=== PATIENT | female | born 1990 | race Caucasian/White ===

== ENCOUNTER 2017-02-03 07:42 | Inpatient (IN) | payer OTHER ==
[~2017-02-03] VITALS: Ht 160 cm; Wt 108.9 kg
[~2017-02-03 07:42] MED LIST: CEPH-512 PO; CeFAZolin Inj 2 GM in IV Premix 1 EACH IV ONE; HYDR-4003 PO; SLEEP; vitamin b6
--- NOTE | 2017-02-03 08:11 | PCM.HPANE ---
Patient Data Surgeon Admitting Provider:Otto Mcdaniel MD Attending Provider:Otto Mcdaniel MD Primary Care Physician:Сергей Kwan MD Other Provider:Twan Pedroza Anesthesia Reason for Visit Repeat REPEAT Ht/WT & BMI Body Mass Index Allergies Coded Allergies: No Known Allergies (Unverified , 06/19/16) Past Anesthesia History Anesthesia History: Denies:: Abnormal Airway, Anesthesia Reactions, Difficult Intubation, Fam Anesthesia Reaction, Malignant Hyperthermia Diabetes History Hx Diabetes?: No MRSA MRSA: No Medications Active Scripts Hydrocodone-Acetaminophen 5-325 mg 1 Each Tablet1 Tablet PO Q4H PRN For Pain # 14 TABLET Prov:Babar Aly MD 06/20/16 Cephalexin (Keflex)500 Mg [id number] Mg PO QID 14 Days Prov:Babar Aly MD 06/20/16 Reported Medications [vitamin b6] No Conflict Check50 Mg HS PRN For Nausea pt taking with sleep aid to help with nausea related to hydrocodone 06/21/16 [sleep tab] No Conflict Check12.5 Mg HS PRN For Nausea 06/21/16 History HEENT History: Denies:: Abnormal Airway Cataracts Difficult Intubation Dysphagia Hearing Problem Sinus Problem TMJ Hx of Heart Problems?: No Cardiovascular History: Denies:: AICD Abdominal Aortic Aneurism Chest Pain Congestive Heart Failure Heart Murmur Hypertension Irregular Heartbeat Pacemaker Hx of Respiratory Problem?: No Respiratory History: Denies:: Asthma COPD Emphysema Oxygen Administration Pneumonia Tuberculosis Use of C-PAP Machine Hx Neurologic Problems?: No Neurological History: Denies:: Alzheimer's Disease CVA Dementia Headaches Multiple Sclerosis Parkinson's Disease Seizures Hx of GI Problems?: Yes Gastrointestinal History: Positive for:: Gastroesphageal Reflux (occasional during ) Heartburn Denies:: Cirrhosis Gastrointestinal Bleeding Hepatitis Hiatal Hernia Rectal Bleeding Hx of Problems?: No Genitourinary History: Denies:: Kidney Stones Urinary Tract Infection Female Hx: Positive for:: Currently (approx 6 weeks ) Denies:: Problems with Breasts? Skin History: Positive for:: History Skin Disorders? 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) Denies:: Back Injury Joint Replacement Systemic Lupus Hx of Psycho/Social Problems?: No Psycho Social History: Denies:: Anxiety Hx Depression Hx Surgeries?: Yes (C section) Hx Any Other Health Problems?: Yes Other History: Denies:: Cancer Thyroid Disease History Blood Transfusions: Denies:: Blood Transfusions Hx Diabetes: No Hx Alcohol Use: NoHx Substance Use: No Smoking Status: Never Smoker Have You Smoked inLast 12 mo: No Stop/Bang NAMRATA Risk Assessment: Low Risk, <3 Yes Risk Assessment Category Category 1A: Patient has history of documented sleep apnea, and HAS NOT received any narcotic, sedative or anesthesia administration during this stay. Category 1B: Patient has history of documented sleep apnea, and HAS received any narcotic , sedative or anesthesia administration during this stay Category 2: Patient has SUSPECTED Obstructive Sleep Apnea, and HAS received any narcotic , sedative or anesthesia administration during this stay. Category 3: Patient has SUSPECTED Obstructive Sleep Apnea and HAS NOT received narcotic, sedative or anesthesia administration during this stay. Category 4: Outpatient in Procedural Areas with known sleep apnea or who screen positive for High Risk via the STOP/BANG questionnaire. Exam Exam General Appearance: Alert HEENT/AIRWAY: MP 1 Lungs: Clear to Auscultation Heart: Exam Unremarkable Plan Impression Patient chart reviewed, patient interviewed and anesthestic plan with risks, benefits, and alternatives discussed, and informed consent obtained. NPO Status: > 8 hrs ASA Physical Status: ASA1 Normal Healthy Anesthetic Plan: Regional Block Bene/Risks/Altern/Consents: Yes HP Complete Prior to Induction: Yes Alton Quiroz MD Feb 03, 2017 08:11
[2017-02-03] MEDS ORDERED: Lactated Ringer's 1,000 ML IV SCH (08:32)
[2017-02-03] MEDS ORDERED: Carboprost 250 mCg/mL Inj IM PRN ×2 (08:35→09:45)
[2017-02-03] MEDS ORDERED: Methylergonovine 0.2 mg/mL Inj IM PRN ×2 (08:35→09:45)
[2017-02-03] MEDS ORDERED: Hemorrhage Kit, Post Partum XX ONE ×2 (08:35→09:45)
[2017-02-03] MEDS ORDERED: Oxytocin 10 Unit/mL Inj IM PRN ×2 (08:35→09:45)
[2017-02-03] MEDS ORDERED: CeFAZolin Inj 2 GM in IV Premix 1 EACH IV ONE (08:35)
[2017-02-03] MEDS ORDERED: Sodium Citrate-Citric Acid 15 mL Solution PO SCH (08:35)
[2017-02-03 08:42] LABS: Mean Corpuscular Hemoglobin 27.4 pg (27.0-35.0); Mean Corpuscular Volume 84.5 fL (81-100)
--- NOTE | 2017-02-03 09:24 | HP ---
[address] [address] HISTORY AND PHYSICAL PATIENT: PRIMITIVO MEIER : 1990 MR#: [id number] ADMIT: 02/03/2017 JOB ID: [id number] This is a 26-year-old female. She is 2, para 1, history of previous section coming today for a scheduled section. This is a patient of Dr. Kwan. She has routine care with Dr. Kwan for her whole . For her labs, it was noticed all in normal range. She has no known drug allergies. She declined other medical problems. SURGICAL HISTORY: Including x1. SOCIAL HISTORY: She is not smoking. She does not drink alcohol and declined drug usage. OBSTETRICAL HISTORY: x1. PHYSICAL EXAMINATION: She is afebrile. Her vitals in normal range. Cardiac: No murmur. Pulmonary: Bilaterally clear. Abdomen: Soft, . Uterus nontender. The heart tracing category 1. No contractions noticed. Extremities nontender. Pelvic examination was deferred. ASSESSMENT AND PLAN: 1. A 26-year-old female 2, para 1, previous section. Plan for repeat section. The patient is GBS positive. No antibiotics prophylactically needed for elective . 2. We will give Ancef before procedure for prophylaxis. 3. We will get SCDs before procedure. 4. The patient does not plan for tubal ligation. Discussed with patient about the benefits, risks, alternatives of repeat section and she understood the risk of infection, bleeding, injury to the organs around the uterus including but not limited to the bladder, ureters, major vessels, nerves, and bowels. Informed consent signed.
[2017-02-03] MEDS: Lactated Ringer's 1,000 ML IV SCH ×2 (09:43→14:08)
[2017-02-03] MEDS ORDERED: Sodium Chloride LOK Flush 10 mL Syringe IVFLUSH PRN (09:45)
[2017-02-03] MEDS ORDERED: LANOlin HPA 7 Gm Ointment TOPICAL PRN (09:45)
[2017-02-03] MEDS ORDERED: Oxytocin 30 Units/500 mL LR 30 UNITS in IV Premix 1 EACH IV PRN (09:45)
[2017-02-03] MEDS ORDERED: Atropine 0.4 mg/mL Inj IV PRN (10:15)
[2017-02-03] MEDS ORDERED: EPHEDrine Sulfate 50 mg/mL Inj IVPUSH PRN (10:15)
[2017-02-03] MEDS ORDERED: fentaNYL-PF 50 mCg/mL 2 mL Inj IVPUSH PRN (10:15)
[2017-02-03] MEDS: Acetaminophen IV 1,000 MG in IV Premix 1 EACH IV PRN ×2 (11:48→18:00)
[2017-02-03] MEDS ORDERED: Phenylephrine/NS-PF 100 mCg/mL 5 mL Syringe IVPUSH ONE (12:46)
[2017-02-03] MEDS ORDERED: fentaNYL-PF 50 mCg/mL 2 mL Inj ONE (12:46)
[2017-02-03] MEDS ORDERED: Morphine PF 1 mg/mL 10 mL Inj ONE (12:46)
--- NOTE | 2017-02-03 13:25 | OP ---
[address] [address] OPERATIVE REPORT PATIENT: PRIMITIVO MEIER : 1990 MR#: [id number] ADMIT: 02/03/2017 JOB ID: [id number] DATE OF SURGERY: 02/03/2017 PREOPERATIVE DIAGNOSIS(ES): A 26-year-old female, 2, para 1, with previous section at 39 weeks. POSTOPERATIVE DIAGNOSIS(ES): A 26-year-old female, 2, para 1, with previous section at 39 weeks. SURGEON: Maisha Herbert MD RN CORRECTIONS: Сергей Kwan MD Supervisor Waterproofing was very necessary for this procedure to help have better exposure. INDICATIONS: This is a 26-year-old female. She is a 2, para 2 now. She came in today for a scheduled repeat section. Informed consent was signed after discussing about benefit, risks, alternatives of the procedure. The patient understood the risk of infection, bleeding, injury to organs around the uterus, including but not limited to the bladder, ureters, major vessels, nerves, and bowels. DESCRIPTION OF PROCEDURE: Patient was transferred to operating room. After anesthesia was noted to be adequate, she was placed in dorsal supine position with a leftward tilt. She was prepared and draped in normal sterile fashion. A Pfannenstiel incision was placed by scalpel along the previous scar, and this incision was carried through to the underlying fascia with Bovie. A transverse incision was placed by scalpel, and this incision was extended bilaterally by Sim scissors. The superior aspect of the incision was grasped by straight Pavithra, tented up. The underlying rectus muscle dissected off. The inferior aspect of the incision was grasped by straight Pavithra, tented up. The underlying rectus muscle dissected off. The rectus muscle was in the midline by scalpels gently, and the underlying peritoneum identified and entered in sharply with direct visualization and extended both bluntly and sharply with direct visualization. There was omentum noticed just beneath the peritoneum. Lower blade inserted to expose the lower segment of the uterus. The vesicouterine peritoneum entered sharply with [place] scissors and bladder flap created easily digitally. The lower blade was reinserted again to expose the lower segment of the uterus. A transverse incision was placed with scalpel and extended bilaterally by bandage scissors. At this time, the membrane ruptured, clear fluid noticed. All the instruments cleared from the field. There was difficulty delivering the head due to tightened scar tissue and floating head. A small incision was placed bilaterally on the rectus muscle and vacuum placed head and the infant's head was delivered without difficulty. The shoulder and head delivered without difficulty. Cord clamped and cut, and the infant was handed to the awaiting dye range operator. Then, the regular cord blood collected. The placenta delivered spontaneously, examined with three-vessel cord completely. After the placenta delivered, the uterus was exteriorized. All debris and clots cleared from the field. The incision was closed by 0-Vicryl continuously with locked fashion. A second layer of the same suture was placed for imbrication and hemostasis. Hemostasis achieved after the second layer of the suture. Then, the pelvic cavity was irrigated by warm normal saline, and then the uterus was returned back to the abdominal cavity. The incision was examined again and hemostasis confirmed. Then, the small incision of the rectus muscle was repaired with a couple of [id number] sutures with 0-Vicryl, and the fascia was reapproximated by 0-Vicryl continuously. The subcutaneous tissue was reapproximated by 2-0 plain sutures continuously. The skin was closed by 4-0 Monocryl on a Carrillo needle subcutaneously. The patient tolerated the procedure well. All instrument, needles, laps, and gauzes counted correct twice. The patient was transferred to the recovery room in stable condition. TAMIKA
[2017-02-03] MEDS ORDERED: Ondansetron 2 mg/mL 2 mL Inj ONE (14:05)
[2017-02-03] MEDS: Ondansetron 2 mg/mL 2 mL Inj IVPUSH PRN ×2 (14:08→18:09)
[2017-02-03] MEDS ORDERED: MetoCLOpramide 5 mg/mL 2 mL Inj IVPUSH PRN (14:10)
[2017-02-03] MEDS ORDERED: Dexamethasone 4 mg/mL Inj IVPUSH PRN (14:10)
--- NOTE | 2017-02-03 19:41 | PCM.ANEP1 ---
Post Anesthesia Phase 1 PACU Phase 1 Assessment Anesthetic Administered: Regional Block Level of Alertness: Awake, talking COE's with Equal Strength: No Pain: No Pain Scale Score: 1 Nausea or Vomiting: No Lungs: Clear to Auscultation Dermatome Level: Full Sensation Summary see anesthesia record for vitals Alton Quiroz MD Feb 03, 2017 19:41
--- NOTE | 2017-02-03 19:44 | PCM.ANEP2 ---
Post Anesthesia Evaluation ASA/CMS Post Anesthesia VS in Patient's Normal Range?: Yes Resp Stable; Airway Patent?: Yes CV Function & Hydration Stable: Yes Mental Status Recovered?: Yes Pain control Satisfactory?: Yes N/V Control Satisfactory?: Yes Alton Quiroz MD Feb 03, 2017 19:44
[2017-02-04] MEDS: HYDROcodone-APAP 5-325 mg Tablet PO PRN ×2 (01:05→05:40)
[2017-02-04] MEDS: Lactated Ringer's 1,000 ML IV SCH ×3 (01:43→21:41)
[2017-02-04] MEDS ORDERED: Lactated Ringer's 1,000 ML IV SCH (06:00)
[2017-02-04] MEDS ORDERED: Hemorrhage Kit, Post Partum XX ONE ×2 (06:00→11:00)
[2017-02-04] MEDS ORDERED: Carboprost 250 mCg/mL Inj IM PRN ×2 (06:00→11:00)
[2017-02-04] MEDS ORDERED: Sodium Citrate-Citric Acid 15 mL Solution PO SCH (06:00)
[2017-02-04] MEDS ORDERED: Methylergonovine 0.2 mg/mL Inj IM PRN ×2 (06:00→11:00)
[2017-02-04] MEDS ORDERED: Oxytocin 10 Unit/mL Inj IM PRN ×2 (06:00→11:00)
[2017-02-04 06:51] LABS: Mean Corpuscular Hemoglobin 27.1 pg (27.0-35.0); Mean Corpuscular Volume 87.4 fL (81-100)
[2017-02-04] MEDS: oxyCODONE-Acetamin 5-325 mg Tablet PO PRN ×2 (10:45→15:00)
[2017-02-04] MEDS ORDERED: Sodium Chloride LOK Flush 10 mL Syringe IVFLUSH PRN (11:00)
--- NOTE | 2017-02-04 11:37 | PCM.PNOBPP ---
Subjective Date of Service Feb 04, 2017 Post : Repeat Ceserean Delivery Visit History Lochia: Normal Pain Management: PO pain meds Gastrointestinal: Good Appetite, No N/V Postop Activity: Ambulating in Room Only, Other (voiding without difficulty. ) Labs Laboratory Tests 02/04/17 06:30: White Blood Count 9.7, Red Blood Count 3.25, Hemoglobin 8.8, Hematocrit 28.4, Mean Corpuscular Volume 87.4, Mean Corpuscular Hemoglobin 27.1, Mean Corpuscular Hemoglobin Concent 31.0, Red Cell Distribution Width 14.9, Platelet Count 162 Exam Vital Signs Vital Signs 123/58, 98, 18, 36.8 Exam Abdomen: Fundus firm Extremities: Normal pulses Lungs: Clear to Auscultation Heart: Regular Rate/Rhythm, Normal S1, Normal S2 General: Alert, Oriented X3 Surgical Wound : Incision General Appearence: Steri Strips, Sutures, Intact, Well Approximated, Incision Healing, No Erythemia, No Discharge, No Inflammatory Changes OB Post Assessment/Plan Assessment 26 Y/O S/P RCD 02/04/16 (as per OP report draft: Rectus muscles where incised (small incisions) bilaterally and with fetyal delivery was vacuum assisted) Postoperative Anemia Post plan: Other (Continue routine postoperative and care anticpate discharge home tomorrow. ) Osmany Rivera MD Feb 04, 2017 11:37
[2017-02-04] MEDS: Ascorbic Acid 500 mg Tablet PO SCH ×2 (11:38→19:49)
[2017-02-05] MEDS: oxyCODONE-Acetamin 5-325 mg Tablet PO PRN ×2 (02:09→10:44)
[2017-02-05 06:44] LABS: Mean Corpuscular Hemoglobin 27.6 pg (27.0-35.0)
--- NOTE | 2017-02-05 09:25 | PCM.DIOB ---
Obstetrical Disch Instruction Date of Service: Feb 05, 2017 Dates of Hospitalization Date of Hospital Admission Feb 03, 2017 at 07:42 Providers Admitting Physician: Otto Mcdaniel MD Primary Care Physician: Сергей Kwan MD Attending Physician: Otto Mcdaniel MD Discharge Diagnosis Discharge Diagnosis s/p repeat c/section POD2 Post Operative diagnosis s/p repeat c/section POD2 Problems: Diet Discharge Diet: No restrictions Activity Discharge Activity-General: Pelvic Rest for 6 weeks, Try not to overdue, Be up and about, Balance rest and activity, No lifting >15 pounds for 2 weeks Dressing and Incisional Care Dressing Care: Allow Steri Stripes to fall off Hygiene: May shower, NO bathtub, hot tub or whirlpool Additional Instructions Discharge Instructions Please call office or go to ER if heavy vaginal bleeding, severe abdominal pain , foul smelling discharge, fever more than 100.4 or short of breath. Follow Up Plan Follow Up Plan 2 and 6 weeks Follow-up Provider (F9): Maisha Herbert MD Follow-up appointment: Weeks (2) Call your provider for: Fever or Chills, Shortness of breath, Heavy vaginal bleeding, Excessive constipation, Vaginal discomfort Additional Information you can schedule 6 weeks with Maisha Olivo MD Feb 05, 2017 09:25
[2017-02-05] MEDS ORDERED: DOCU-41 PO (09:27)
[2017-02-05] MEDS ORDERED: IBUP800T28 PO (09:27)
[2017-02-05] MEDS ORDERED: OXYC1TAB24 PO (09:27)
[2017-02-05 10:37] VITALS: BP 127/67; PULSE 100; RESP 20
[2017-02-05] MEDS: Ascorbic Acid 500 mg Tablet PO SCH (10:44)
--- NOTE | 2017-02-05 18:23 | DIS ---
[address] [address] DISCHARGE SUMMARY PATIENT: PRIMITIVO MEIER : 1990 MR#: [id number] ADMIT: 02/03/2017 JOB ID: [id number] DIS: 02/05/2017 This is a 26-year-old female. She is para 2, status post repeat section. This is postop day two. The surgery itself was not complicated. Patient is doing well after the procedure. She tolerated her diet well. Ambulating well. Voiding well. She passed gas. No bowel movement yet. Her lochia was moderate to minimal. PHYSICAL EXAMINATION: She has been afebrile after delivery. Her vitals in normal range. Cardiac: RR, no murmur. Pulmonary: Bilaterally clear. Abdomen soft. Uterus well contracted, nontender. Extremities nontender. Lochia moderate. ASSESSMENT AND PLAN: A 26-year-old female, para 2, status post repeat section. Doing well. This is postop day two. Plan to discharge patient home. Prescription given, including Motrin 800 mg q.8 h., Percocet 5/325, 30 pills, no refills, q.8 h. p.r.n. for pain, Colace 100 mg, 60 pills, no refills for possible constipation. Patient is instructed that if there is heavy vaginal bleeding, severe abdominal pain, fever more than 100.4, short of breath, she needs to call office or go to the ED for evaluation. The patient is instructed that she can follow with me two weeks after the procedure and follow up [facility] six weeks after delivery. TAMIKA
== END 2017-02-05 12:47 | disposition home or self-care (01) | DRG 766 ==
LOC: FBC 07:42 → EDSTATUS 09:15 → FBC 23:26
PROVIDERS: ADMIT Legal Medicine; ATTEND Legal Medicine
PROC: 10D00Z1 Extraction of Products of Conception, Low, Open Approach (ICD-10-PCS; principal; 2017-02-03 09:15)
DX: O34.211 Maternal care for low transverse scar from previous cesarean delivery (principal); O99.824 Streptococcus B carrier state complicating childbirth; Z3A.39 39 weeks gestation of pregnancy; Z37.0 Single live birth